=== PATIENT | female | born 1945 | race Caucasian/White ===

== ENCOUNTER → 2019-02-05 | Outpatient (CLI) | payer MEDICARE ==
[2019-02-05 16:23] LABS: Alanine Aminotransfer (ALT/SGP 29 U/L (12-78); Albumin, Blood 3.7 g/dL (3.4-5.0); Albumin/Globulin Ratio 0.9 (0.8-1.8); Alk Phos 82 U/L (50-136); Anion Gap 9 mmol/L (6-16); Aspartate Aminotrans (AST/SGOT 24 U/L (12-37); Bilirubin, Total 0.4 mg/dL (0.1-1.0); Blood Urea Nitrogen 11 mg/dL (8-24); Bun/Creatinine Ratio 16.5 (12.0-20.0); CO2, Blood 25 mmol/L (21-32); Calcium, Blood 8.8 mg/dL (8.5-10.1); Chloride, Blood 107 mmol/L (98-108); Creatinine, Blood 0.67 mg/dL (0.40-1.00); Free Thyroxine 1.32 ng/dL (0.70-1.60); Globulin, Blood 3.9 g/dL (2.2-4.0); Glomerular Filtration Rate >60 (60-); Glucose, Blood 133 mg/dL (70-99); Potassium, Blood 3.9 mmol/L (3.5-5.5); Sodium, Blood 141 mmol/L (136-145); Total Protein, Blood 7.6 g/dL (6.4-8.2)
[2019-02-05 16:27] LABS: Thyroid Stimulating Hormone 0.473 uIU/mL (0.360-4.800)
== END | disposition home or self-care (01) ==
LOC: LAB SHORT 14:15 → LAB 14:15
PROVIDERS: Family Medicine
DX: E03.9 Hypothyroidism, unspecified (principal); R06.02 Shortness of breath; R60.9 Edema, unspecified
CPT/HCPCS: 80053; 84439; 84443

== ENCOUNTER → 2019-02-21 | Outpatient (CLI) | payer MEDICARE | END | disposition home or self-care (01) | LOC: LAB SHORT 13:07 → LAB 13:07 | DX: N39.0 Urinary tract infection, site not specified (principal) | CPT/HCPCS: 87077; 87086; 87186 ==

== ENCOUNTER → 2021-12-23 | Outpatient (CLI) | payer OTHER | END | disposition home or self-care (01) | LOC: LAB 15:30 → LAB SHORT 15:30 | DX: R30.9 Painful micturition, unspecified (principal) | CPT/HCPCS: 87086 ==

== ENCOUNTER → 2022-08-06 | Outpatient (CLI) | payer OTHER | LOC: LAB SHORT 18:37 → LAB 18:37 | DX: N39.0 Urinary tract infection, site not specified (principal) | CPT/HCPCS: 87077; 87086; 87186 ==

== ENCOUNTER 2023-02-11 21:50 | Inpatient (IN) | payer OTHER ==
[~2023-02-11] VITALS: Ht 152.4 cm; Wt 83.1 kg
[2023-02-11 22:46] LABS: BASOPHILS ABSOLUTE AUTO 0.02 K/mm3 (0.00-0.23); BASOPHILS PERCENT AUTO 0 % (0-2); EOSINOPHILS ABSOLUTE AUTO 0.18 K/mm3 (0.00-0.68); EOSINOPHILS PERCENT AUTO 2 % (0-6); Hematocrit 36.6 % (33.0-51.0); Hemoglobin 11.7 g/dL (11.5-16.0); IMMATURE GRAN ABSOLUTE AUTO 0.06 K/mm3 (0.00-0.10); IMMATURE GRAN PERCENT AUTO 1 % (0-1); LYMPHOCYTES ABSOLUTE AUTO 2.75 K/mm3 (0.84-5.20); LYMPHOCYTES PERCENT AUTO 32 % (21-46); MONOCYTES ABSOLUTE AUTO 0.63 K/mm3 (0.16-1.47); MONOCYTES PERCENT AUTO 7 % (4-13); Mean Corpuscular HGB 27.3 pg (26.0-34.0); Mean Corpuscular Volume 85 fL (80-100); Mean Platelet Volume 10.5 fL (9.1-12.4); NEUTROPHILS PERCENT AUTO 58 % (41-73); Platelet Count 289 K/mm3 (150-400); RDW Coefficient Variation 13.4 % (11.7-14.2); RDW Standard Deviation 41.4 fL (35.1-46.3); Red Blood Cell Count 4.29 M/mm3 (3.80-5.20); White Blood Cell Count 8.64 K/mm3 (4.00-11.30)
[2023-02-11 23:10] LABS: Albumin, Blood 3.2 g/dL (3.4-5.0); Albumin/Globulin Ratio 0.8 (0.8-1.8); Bilirubin, Total 0.3 mg/dL (0.1-1.0); Bun/Creatinine Ratio 12.5 (12.0-20.0); Calcium, Blood 8.7 mg/dL (8.5-10.1); Creatinine, Blood 0.8 mg/dL (0.40-1.00); Globulin, Blood 3.8 g/dL (2.2-4.0); Potassium, Blood 4.6 mmol/L (3.5-5.5)
[2023-02-12 00:06] LABS: Influenza A, PCR NEGATIVE (NEGATIVE); Influenza B, PCR NEGATIVE (NEGATIVE); Resp Syncytial Virus, PCR NEGATIVE (NEGATIVE); SARS-Cov-2 (COVID-19) PCR, MMC NEGATIVE (NEGATIVE)
[2023-02-12] MEDS ORDERED: EPINEPHRIN0.3 MG/0.1 IM (00:30)
[2023-02-12] MEDS ORDERED: LEVOTHYROXINE50 MC9 PO (00:30)
[2023-02-12] MEDS ORDERED: LOSARTAN POTASS25 M2 PO (00:30)
[2023-02-12] MEDS ORDERED: DONEPEZIL HCL10 M1 PO (00:31)
[2023-02-12] MEDS ORDERED: SYMBICORT 16010.2 GM IH (00:31)
[2023-02-12] MEDS ORDERED: PRED FORTE5 M1 BOTHEYES (00:31)
[2023-02-12] MEDS ORDERED: LORAZEPAM0.5 MG PO (00:31)
--- NOTE | 2023-02-12 04:00 | NUR ---
ADMIT NOTE; PT ARRIVES FROM THE ED VIA GURNEY. UPON ADMIT THE PT IS TRANSFERED FROM THE GURNEY TO THE HOSPITAL BED VIA SLIDER SHEET. THE PT IS AXO X4 W. [id number]. THE PT IS [place]. THE PT HAS 2L NC ON. THE PT DENIES ANY SOB, CHEST PAIN/PRESSURE OR PAIN UPON ADMIT. THE PT DENIES ANY ACUTE NEEDS AT THIS TIME.
[2023-02-12 04:06] VITALS: BP 102/59
--- NOTE | 2023-02-12 05:52 | NUR ---
SHIFT SUMMARY; NO ACUTE CHANGES OVERNIGHT. THE PT IS AXO X3-4 AND A 1 ASSIST W/FWW. THE PT HAS BEEN RESTING IN BED SINCE ADMIT. THE PT HAS 2L NC W/ O2 SATS >92%. THE PT DENIES ANY SOB, CHEST PAIN/PRESSURE, PAIN OR N/V. CURRRENTLY THE PT IS RESTING IN BED WITH THE BED IN THE LOWEST POSITION AND THE CALL LIGHT AT BEDSIDE.
[2023-02-12 07:15] VITALS: BP 92/71
[2023-02-12 10:10] VITALS: BP 116/60
--- NOTE | 2023-02-12 14:21 | NUR ---
PT HACKING CONSTANT COUGH. RT NOTIFIED FOR TREATMENT. AWARE.
[2023-02-12 15:36] VITALS: BP 94/62
--- NOTE | 2023-02-12 16:48 | NUR ---
SHIFT SUMMARY- PT IS ALERT AND ORIENTED TO PERSON, PLACE, SITUATION. DIFFICULTY WITH SHORT TERM MEMORY. 2LNC. AMBULATED TO THE BATHROOM USING FWW AND STAND BY ASSISTANCE. FAMILY AT BEDSIDE. HACKING COUGH. NOTIFIED SEE EMAR. PT REPORTED ALLERGY TO CODEINE. CHART UPDATED. NO ACUTE CHANGES THIS SHIFT. PT DAUGHTER WOULD LIKE AN UPDATE
[2023-02-12 19:38] VITALS: BP 137/55
[2023-02-13 05:08] VITALS: BP 112/76
--- NOTE | 2023-02-13 06:21 | NUR ---
SUMMARY: NO ACUTE EVENTS OVERNIGHT. PATIENT ON 2L NC. AMBULATES FROM BED TO CHAIR INDPENDENTLY. VSS. CALL LIGHT IN REACH.
[2023-02-13 07:24] VITALS: BP 101/73
--- NOTE | 2023-02-13 11:33 | NUR ---
Pt. is awake and sitting up in a recliner when she welcomes my visit. Pt. is pleasant. Facilitate a life review and listen with empathy and calming presence. Considered matters of skip and belief. Pt. displayed evidence of increased trust and enagement. Prayed with Pt. Pt. verbalized gratitude for the spiritual care visit.
[2023-02-13] MEDS ORDERED: IPRAT-ALBUT 0.5-3 ML INH (13:44)
[2023-02-13] MEDS ORDERED: Prednisone20 MG PO (13:46)
[2023-02-13] MEDS ORDERED: BENZ100A PO (14:12)
--- NOTE | 2023-02-13 14:29 | NUR ---
DISCHARGE DISCHARGED HOME FAMILY AT BEDSIDE. DISCUSSED DISCHARGE INSTRUCTIONS WITH PT AND FAMILY. EXPRESSED IMPORTANCE OF SMOKING CESSATION. ALERT AND ORIENTED X4. SOME DIFFICULTY WITH SHORT TERM MEMORY. INDEPENDENT IN THE ROOM. [facility] TO DELIVER EQUIPMENT.
[2023-02-14] MEDS ORDERED: Ventolin/Prove6.7 GM INH (18:24)
[2023-02-14] MEDS ORDERED: LORAZEPAM0.5 MG PO (18:25)
== END 2023-02-13 14:30 | disposition hospice, inpatient (51) | DRG 189 ==
LOC: ER 21:50 → MEDS 02-12 03:35 → ENPENDDIS 02-13 12:39 → MEDS 02-13 14:30
PROVIDERS: Emergency Medicine; ADMIT Internal Medicine
DX: J96.01 Acute respiratory failure with hypoxia (principal); J44.1 Chronic obstructive pulmonary disease with (acute) exacerbation; F17.210 Nicotine dependence, cigarettes, uncomplicated; H40.9 Unspecified glaucoma; I10 Essential (primary) hypertension; Z51.5 Encounter for palliative care; F03.90 Unspecified dementia, unspecified severity, without behavioral disturbance, psychotic disturbance, mood disturbance, and anxiety; E89.0 Postprocedural hypothyroidism; F41.9 Anxiety disorder, unspecified; F32.A Depression, unspecified; I35.0 Nonrheumatic aortic (valve) stenosis; Z20.822 Contact with and (suspected) exposure to COVID-19; Z98.890 Other specified postprocedural states; Z71.6 Tobacco abuse counseling; Z99.81 Dependence on supplemental oxygen; Z79.51 Long term (current) use of inhaled steroids; Z88.2 Allergy status to sulfonamides; Z90.710 Acquired absence of both cervix and uterus; Z88.8 Allergy status to other drugs, medicaments and biological substances; Z91.030 Bee allergy status; Z91.038 Other insect allergy status
CPT/HCPCS: 0241U; 71046; 71260; 80053; 83880; 84484; 85025; 85379; 93005; 93010; 93306; 94640; 94664; 94760; A9270; J1650; J1940; J2930; Q9967

== ENCOUNTER 2023-02-14 16:49 | Inpatient (IN) | payer OTHER ==
[~2023-02-14] VITALS: Ht 152.4 cm; Wt 82.8 kg
[~2023-02-14 16:49] MED LIST: BENZ100A PO; DONEPEZIL HCL10 M1 PO; EPINEPHRIN0.3 MG/0.1 IM; IPRAT-ALBUT 0.5-3 ML INH; LEVOTHYROXINE50 MC9 PO; LORAZEPAM0.5 MG PO; LOSARTAN POTASS25 M2 PO; PRED FORTE5 M1 BOTHEYES; Prednisone20 MG PO; SYMBICORT 16010.2 GM IH
[2023-02-14 18:06] LABS: BASOPHILS ABSOLUTE AUTO 0.01 K/mm3 (0.00-0.23); BASOPHILS PERCENT AUTO 0 % (0-2); EOSINOPHILS PERCENT AUTO 0 % (0-6); Hematocrit 33.1 % (33.0-51.0); Hemoglobin 10.5 g/dL (11.5-16.0); IMMATURE GRAN ABSOLUTE AUTO 0.08 K/mm3 (0.00-0.10); IMMATURE GRAN PERCENT AUTO 1 % (0-1); LYMPHOCYTES ABSOLUTE AUTO 1.37 K/mm3 (0.84-5.20); LYMPHOCYTES PERCENT AUTO 13 % (21-46); MONOCYTES ABSOLUTE AUTO 0.48 K/mm3 (0.16-1.47); MONOCYTES PERCENT AUTO 5 % (4-13); Mean Corpuscular HGB 27.3 pg (26.0-34.0); Mean Corpuscular HGB Conc 31.7 g/dL (31.5-36.5); Mean Corpuscular Volume 86 fL (80-100); Mean Platelet Volume 10.6 fL (9.1-12.4); NEUTROPHILS ABSOLUTE AUTO 8.71 K/mm3 (1.96-9.15); NEUTROPHILS PERCENT AUTO 82 % (41-73); Platelet Count 297 K/mm3 (150-400); RDW Coefficient Variation 13.9 % (11.7-14.2); RDW Standard Deviation 42.8 fL (35.1-46.3); Red Blood Cell Count 3.84 M/mm3 (3.80-5.20); White Blood Cell Count 10.65 K/mm3 (4.00-11.30)
[2023-02-14 18:23] LABS: Albumin, Blood 3.1 g/dL (3.4-5.0); Albumin/Globulin Ratio 0.8 (0.8-1.8); Bilirubin, Total 0.1 mg/dL (0.1-1.0); Bun/Creatinine Ratio 29.9 (12.0-20.0); Calcium, Blood 8.5 mg/dL (8.5-10.1); Creatinine, Blood 0.8 mg/dL (0.40-1.00); Globulin, Blood 3.7 g/dL (2.2-4.0); Potassium, Blood 4.7 mmol/L (3.5-5.5); Total Protein, Blood 6.8 g/dL (6.4-8.2)
[2023-02-14] MEDS ORDERED: Ventolin/Prove6.7 GM INH (18:24)
[2023-02-14] MEDS ORDERED: LORAZEPAM0.5 MG PO (18:25)
[2023-02-14 21:45] LABS: International Normalized Ratio 0.92; Prothrombin Time Results 9.7 Sec (9.7-11.5)
[2023-02-14 22:00] LABS: Anti-Xa UFH, PHA Monitoring <0.10 IU/mL
[2023-02-14 22:12] VITALS: BP 133/62
[2023-02-15] VITALS (7 sets, daily range): BP systolic 122–154; BP diastolic 58–98
[2023-02-15 04:24] LABS: Hematocrit 31.4 % (33.0-51.0); Mean Corpuscular HGB 27.2 pg (26.0-34.0); Mean Corpuscular HGB Conc 31.8 g/dL (31.5-36.5); Mean Corpuscular Volume 86 fL (80-100); Mean Platelet Volume 10.5 fL (9.1-12.4); Platelet Count 270 K/mm3 (150-400); RDW Coefficient Variation 14.1 % (11.7-14.2); RDW Standard Deviation 43.2 fL (35.1-46.3); Red Blood Cell Count 3.67 M/mm3 (3.80-5.20); White Blood Cell Count 11.31 K/mm3 (4.00-11.30)
[2023-02-15 04:45] LABS: Bun/Creatinine Ratio 28.8 (12.0-20.0); Calcium, Blood 8.1 mg/dL (8.5-10.1); Creatinine, Blood 0.73 mg/dL (0.40-1.00); Magnesium, Blood 1.9 mg/dL (1.6-2.4); Potassium, Blood 3.9 mmol/L (3.5-5.5)
--- NOTE | 2023-02-15 07:14 | NUR ---
SHIFT SUMMARY/ARRIVAL TO PCU PT ARRIVED TO PCU AT APPROXIMATELY 2210. PT SLID OVER FROM ER GURNEY TO HOSPITAL BED BY 3 CLINICAL STAFF MEMBERS. PT A&Ox4, CALLS AND COMMUNICATES NEEDS APPROPRIATELY, ORIENTED PT TO CALL LIGHT/UNIT. PT DENIED CP/PRESSURE THROUGHOUT SHIFT. BP STABLE, SINUS 60-70's. SpO2> 92% RA WHILE AWAKE, PT DESATURATED TO MID 80's WHILE ASLEEP, 2L VIA NC KEPT SpO2> 92% WHILE ASLEEP. PT INCONTINENT/CONTINENT OF URINE AND BOWEL, SBA TO BSC. PT STATED THAT WHEN SHE HAS HER COUGHING FITS, THATS WHEN SHE IS INCONTINENT. HEPARIN gtt INFUSING PER EMAR MANAGED BY PHARMACY. NO OTHER EVENTS, REPORT GIVEN TO DAY SHIFT RN.
--- NOTE | 2023-02-15 17:03 | NUR ---
SHIFT SUMMARY PT IS ALERT AND ORIENTED X 4 AND HAS ANSWERED QUESTIONS APPROPRIATELY BUT IS FORGETFUL AT TIMES. BP AND HR STABLE, SPO2 MAINTAINED >93% VIA RA-1L VIA NC. OCCASSIONAL HACKING COUGH NOTED W/ WHITE/BROWN SPUTUM AT TIMES. PT KNOWN TO BE A CURRENT EVERY DAY SMOKER. PT REPORTED FEELING SOB W/ EXERTION BUT SPO2 MAINTAINS. SHE HAS DENIED FEELINGS OF CHEST PAIN/PRESSURE DURING SHIFT. PAIN REPORTED IN BACK, HEAT THERAPY PROVIDED, ALSO SEE EMAR FOR PAIN MANAGEMENT. SHE HAS DENIED FEELINGS OF NAUSEA DURING SHIFT. DIURETIC PROVIDED DURING SHIFT PER EMAR ORDERS AND PT FREQUENTLY USED BEDSIDE COMMODE A 1 PERSON ASSIST TO MANAGE LINES//ASSIST W/ LANNY CARE AND ATTENDS CHANGES IF NEEDED. TWO DAUGHTERS AND A SON HAVE BEEN AT BEDSIDE ON AND OFF DURING SHIFT. PT REPORED HISTORY OF ANXIETY BUT DENIED FEELING ANXIETY DURING SHIFT. PT REPORTED THAT SHE WAS HAVING AN EPISODE OF ANXIETY PRIOR TO HOSPITALIZATION. WILL CONTINUE TO MONITOR AND REPORT TO ONCOMING RN.
[2023-02-16 03:39] VITALS: BP 126/64
[2023-02-16 03:40] LABS: BASOPHILS ABSOLUTE AUTO 0.02 K/mm3 (0.00-0.23); BASOPHILS PERCENT AUTO 0 % (0-2); EOSINOPHILS ABSOLUTE AUTO 0.16 K/mm3 (0.00-0.68); EOSINOPHILS PERCENT AUTO 1 % (0-6); Hematocrit 34.4 % (33.0-51.0); IMMATURE GRAN ABSOLUTE AUTO 0.07 K/mm3 (0.00-0.10); IMMATURE GRAN PERCENT AUTO 1 % (0-1); LYMPHOCYTES ABSOLUTE AUTO 3.91 K/mm3 (0.84-5.20); LYMPHOCYTES PERCENT AUTO 35 % (21-46); MONOCYTES ABSOLUTE AUTO 0.78 K/mm3 (0.16-1.47); MONOCYTES PERCENT AUTO 7 % (4-13); Mean Corpuscular HGB 27.3 pg (26.0-34.0); Mean Corpuscular Volume 85 fL (80-100); Mean Platelet Volume 10.4 fL (9.1-12.4); NEUTROPHILS PERCENT AUTO 56 % (41-73); Platelet Count 308 K/mm3 (150-400); RDW Coefficient Variation 13.9 % (11.7-14.2); RDW Standard Deviation 42.8 fL (35.1-46.3); Red Blood Cell Count 4.03 M/mm3 (3.80-5.20); White Blood Cell Count 11.14 K/mm3 (4.00-11.30)
[2023-02-16 04:10] LABS: Bun/Creatinine Ratio 31.7 (12.0-20.0); Calcium, Blood 8.5 mg/dL (8.5-10.1); Creatinine, Blood 1.01 mg/dL (0.40-1.00); Free Thyroxine 1.28 ng/dL (0.70-1.60); Magnesium, Blood 2.1 mg/dL (1.6-2.4); Potassium, Blood 3.8 mmol/L (3.5-5.5); Thyroid Stimulating Hormone 0.232 uIU/mL (0.360-4.800); Triiodothyronine, Free 2.02 pg/mL (2.18-3.98)
--- NOTE | 2023-02-16 04:35 | NUR ---
SHIFT SUMMARY PT IS A/Ox3-4 AND COOPERATIVE WITH CARE PROVIDED BY MEMBERS OF STAFF. ANSWERS QUESTIONS APPROPRIATELY AND ABLE TO MAKE HER NEEDS KNOWN. NO ACUTE EVENTS OVERNIGHT FOR PT WAS ABLE TO SLEEP T/O MOST OF THE SHIFT. CAN BE CONFUSED/FORGETFUL AT TIMES (HX OF DEMENTIA). CARDIAC ARAMBULA, REMAINED IN SR 70-90'S WITH NO REPORTS OF CP OR PRESSURE DURING THE NIGHT. BP HAS REMAINED STABLE WELL. MAINTAINS SPO2 >92% ON RA-1L. PT NOTED TO BECOME SOB WITH EXERTION WELL DESAT INTO THE UPPER 80'S WHEN ASLEEP. COUGH AND PAIN MANAGED WELL WITH MEDS GIVEN ORDERED VIA EMAR. ABLE TO ABULATE TO BSC TO VOID WITHOUT NEED OF STAFF ASSIST. NO NEW ORDERS AT THIS TIME, WILL REPORT TO ONCOMING RN. SAL WALLIS T/O THE SHIFT
[2023-02-16 07:27] VITALS: BP 111/87
--- NOTE | 2023-02-16 09:18 | NUR ---
ASSUMPTION OF CARE: RECIEVED REPORT FROM SPANISH LECTURER RN AT APPROX 0715. PT ALERT AND ORIENTED, ABLE TO ANSWER QUESTIONS AND MAKE NEEDS KNOWN. PT SBP 110'S WITH HR IN THE 90'S NO C/O CHEST PAIN, PRESSURE OR SOB. PT ABLE TO USE BEDSIDE COMMODE WITH MINIMAL ASSIST. PT UP IN THE CHAIR FOR BREAKFAST. PT DAUGHTER AT THE BEDSIDE AND UPDATED TO PLAN OF CARE. WILL CONTINUE TO MONITOR T/O THE SHIFT.
[2023-02-16 11:49] VITALS: BP 123/90
--- NOTE | 2023-02-16 16:16 | NUR ---
Upon receiving a referral for spiritual care, I visit the patient. Patient has her dtr Apolonia bedside and they immediately engage well in conversation. They share about the patient's 9 children and multiple grandchlidren. Patient talks about the pain of having dementia and is tearful at times about not being able to say what she means and remember things that she knows. We explore to the positive things that are ahead and the safety, peace and guardrails that are in place already for her. She shares about her strong Buddhism skip and her trust in God to hear and answer her prayers. I provide therapeutic listening, levity, emotional support and prayer. Patient and Apolonia respond well and show signs of increased peace and a renewed hope about the future. I will cotninue to remain available to patient and family.
[2023-02-16 16:29] VITALS: BP 123/53
--- NOTE | 2023-02-16 17:37 | NUR ---
SHIFT SUMMARY: NO ACUTE CHANGES T/O THE SHIFT. PT REMAINS MEDICAL STATUS WITH TELE PER DR. FREED. PT WORKED WITH PHYSICAL THERAPY TODAY WITH NO ISSUES, SBA WITH A WALKER. PT ABLE TO USE THE BEDSIDE COMMODE WITH NO C/O LIGHTHEADNESS, SOB OR CHEST PAIN/PRESSURE. SBP IN THE 120'S, HR REMAINS IN THE 80-90'S. PT ABLE TO TOLERATE BEING ON ROOM AIR T/O THE SHIFT AND MAINTAINING >90%. DAUGHTER AT THE BEDSIDE MOST OF THE AFTERNOON AND UPDATED TO PLAN OF CARE. WILL CONTINUE TO MONITOR AND GIVE REPORT TO NOC SHIFT RN.
[2023-02-16 19:29] VITALS: BP 131/61
[2023-02-17 03:40] VITALS: BP 155/95
--- NOTE | 2023-02-17 05:22 | NUR ---
SHIFT SUMMARY PT IS A/Ox3-4 AND COOPERATIVE WITH CARE PROVIDED BY MEMBERS OF STAFF. HX OF DEMENTIA AND CAN BE FORGETFUL/EASILY CONFUSED AT TIMES. ABLE TO ANSWER QUESTIONS AND ABLE TO MAKE HER NEEDS KNOWN. NO ACUTE EVENTS FOR PT WAS BALE TO SLEEP T/O MOST OF THE NIGHT. CARDIAC ARAMBULA, REMAINED IN SR-ST 70-100'S WITH NO REPORTS OF CP OR PRESSURE DURING THE SHIFT. SBP STABLE AT THIS TIME. RESPIRATORY ARAMBULA, MAINTAINS SPO2 >92% ON RA, INTERMITTENT EPISODES OF SOB, BUT PT STATES "I THINK ITS MY SEASONAL ALLERGIES". RESPONDED WELL TO PRN BREATHING TREATMENTS. ALSO HAS EPISODES OF PERSISTANT/PRODUCTIVE COUGH. ABLE TO ABULATE TO BSC OR BATHROOM WITH MINMAL ASSISTANCE. NO NEW ORDERS AT THIS TIME, WILL REPORT TO ONCOMING RN. SAL WALLIS T/O THE SHIFT
[2023-02-17 08:44] VITALS: BP 121/103
[2023-02-17] MEDS ORDERED: ACET325 PO (16:22)
[2023-02-17] MEDS ORDERED: ASPI81CH PO (16:23)
[2023-02-17] MEDS ORDERED: ATOR40TA PO (16:26)
[2023-02-17] MEDS ORDERED: CLOP75 PO (16:27)
[2023-02-17] MEDS ORDERED: BENMENLOZ MM (16:32)
[2023-02-17] MEDS ORDERED: METO50ER PO (16:34)
[2023-02-17] MEDS ORDERED: SPIR25 PO (16:35)
[2023-02-17] MEDS ORDERED: PANT40 PO (16:35)
[2023-02-17] MEDS ORDERED: SOAANZ40 M1 PO (16:37)
--- NOTE | 2023-02-17 18:18 | NUR ---
NURSING PCU DISCHARGE SUMMARY: No significant changes since a.m. assessment. Seen by PMD, discharge home d/o received. Pt and daughter verbalized understanding of all written and verbal discharge instructions. PIV dc'd w/cath intact. Rx's faxed to [facility]. No s/s of acute distress at time of discharge. Escorted from unit via w/c accompanied by PCT.
== END 2023-02-17 17:17 | disposition home health service (06) | DRG 280 ==
LOC: ER 16:49 → PCU 21:04
PROVIDERS: Family Medicine; Internal Medicine Cardiovascular Disease; Nurse Practitioner Acute Care; Pharmacist; Student in an Organized Health Care Education/Training Program; ADMIT Internal Medicine
DX: I21.4 Non-ST elevation (NSTEMI) myocardial infarction (principal); I50.33 Acute on chronic diastolic (congestive) heart failure; J96.01 Acute respiratory failure with hypoxia; J44.1 Chronic obstructive pulmonary disease with (acute) exacerbation; I11.0 Hypertensive heart disease with heart failure; I35.0 Nonrheumatic aortic (valve) stenosis; E89.0 Postprocedural hypothyroidism; F03.90 Unspecified dementia, unspecified severity, without behavioral disturbance, psychotic disturbance, mood disturbance, and anxiety; Z98.890 Other specified postprocedural states; H40.9 Unspecified glaucoma; D64.9 Anemia, unspecified; E66.01 Morbid (severe) obesity due to excess calories; R00.1 Bradycardia, unspecified; D72.828 Other elevated white blood cell count; E05.80 Other thyrotoxicosis without thyrotoxic crisis or storm; Z90.710 Acquired absence of both cervix and uterus; F17.210 Nicotine dependence, cigarettes, uncomplicated; Z68.37 Body mass index [BMI] 37.0-37.9, adult; Z88.2 Allergy status to sulfonamides; Z88.5 Allergy status to narcotic agent; Z88.8 Allergy status to other drugs, medicaments and biological substances; Z71.6 Tobacco abuse counseling; Z91.030 Bee allergy status; Z91.038 Other insect allergy status; Z79.51 Long term (current) use of inhaled steroids; Z79.890 Hormone replacement therapy; Z79.899 Other long term (current) drug therapy
CPT/HCPCS: 36415; 71046; 80048; 80053; 83735; 83880; 84439; 84443; 84481; 84484; 85025; 85027; 85520; 85610; 85730; 93005; 93010; 94640; 94664; 94760; 97110-CQ; 97116-CQ; 97162; 97530; 99285-25; A9270; J1644; J1650; J7512

== ENCOUNTER 2023-03-17 11:14 | Inpatient (IN) | payer OTHER ==
[~2023-03-17] VITALS: Ht 152.4 cm; Wt 76.0 kg
[~2023-03-17 11:14] MED LIST changes: +ACET325 PO; +ASPI81CH PO; +ATOR40TA PO; +BENMENLOZ MM; +CLOP75 PO; +METO50ER PO; +PANT40 PO; +SOAANZ40 M1 PO; +SPIR25 PO; +Ventolin/Prove6.7 GM INH
[2023-03-17 13:07] LABS: Albumin, Blood 3.5 g/dL (3.4-5.0); Albumin/Globulin Ratio 0.8 (0.8-1.8); Bilirubin, Direct 0.1 mg/dL (0.0-0.3); Bilirubin, Indirect 0.7 mg/dL (0.1-0.7); Bilirubin, Total 0.8 mg/dL (0.1-1.0); Bun/Creatinine Ratio 17.5 (12.0-20.0); Calcium, Blood 8.9 mg/dL (8.5-10.1); Creatinine, Blood 1.37 mg/dL (0.40-1.00); Globulin, Blood 4.2 g/dL (2.2-4.0); Potassium, Blood 3.7 mmol/L (3.5-5.5); Total Protein, Blood 7.7 g/dL (6.4-8.2)
[2023-03-17 13:09] LABS: BASOPHILS ABSOLUTE AUTO 0.02 K/mm3 (0.00-0.23); BASOPHILS PERCENT AUTO 0 % (0-2); EOSINOPHILS PERCENT AUTO 1 % (0-6); Hematocrit 28.8 % (33.0-51.0); Hemoglobin 9.5 g/dL (11.5-16.0); IMMATURE GRAN ABSOLUTE AUTO 0.06 K/mm3 (0.00-0.10); IMMATURE GRAN PERCENT AUTO 1 % (0-1); LYMPHOCYTES ABSOLUTE AUTO 2.52 K/mm3 (0.84-5.20); LYMPHOCYTES PERCENT AUTO 28 % (21-46); MONOCYTES ABSOLUTE AUTO 0.71 K/mm3 (0.16-1.47); MONOCYTES PERCENT AUTO 8 % (4-13); Mean Corpuscular HGB 28.1 pg (26.0-34.0); Mean Corpuscular Volume 85 fL (80-100); Mean Platelet Volume 10.1 fL (9.1-12.4); NEUTROPHILS ABSOLUTE AUTO 5.75 K/mm3 (1.96-9.15); NEUTROPHILS PERCENT AUTO 63 % (41-73); Platelet Count 388 K/mm3 (150-400); RDW Coefficient Variation 14.4 % (11.7-14.2); RDW Standard Deviation 44.2 fL (35.1-46.3); Red Blood Cell Count 3.38 M/mm3 (3.80-5.20); White Blood Cell Count 9.16 K/mm3 (4.00-11.30)
[2023-03-17 19:04] VITALS: BP 122/40
[2023-03-17 21:09] LABS: Hematocrit 26.9 % (33.0-51.0); Hemoglobin 8.7 g/dL (11.5-16.0)
[2023-03-18] VITALS (15 sets, daily range): BP systolic 84–133; BP diastolic 47–83
[2023-03-18 04:05] LABS: Hemoglobin 8.1 g/dL (11.5-16.0); Mean Corpuscular HGB 27.5 pg (26.0-34.0); Mean Corpuscular HGB Conc 32.4 g/dL (31.5-36.5); Mean Corpuscular Volume 85 fL (80-100); Mean Platelet Volume 9.9 fL (9.1-12.4); Platelet Count 297 K/mm3 (150-400); RDW Coefficient Variation 14.4 % (11.7-14.2); RDW Standard Deviation 43.8 fL (35.1-46.3); Red Blood Cell Count 2.95 M/mm3 (3.80-5.20); White Blood Cell Count 6.18 K/mm3 (4.00-11.30)
[2023-03-18 04:59] LABS: Bun/Creatinine Ratio 17.6 (12.0-20.0); Calcium, Blood 8.4 mg/dL (8.5-10.1); Creatinine, Blood 1.36 mg/dL (0.40-1.00); Potassium, Blood 3.7 mmol/L (3.5-5.5)
--- NOTE | 2023-03-18 05:27 | NUR ---
Shift Summary RT came to see pt and measured 83% O2 sat, I obtained an order from hospitalist to titrate to 92% O2 via NC. Pt has poor perfusion in her hands which may have contributed to low reading. Using ear lobe monitor pt O2 sat 94-100% on 1.5L O2 at rest. Pt up to the bathroom with 1 assist, bed alarm on. Slept well t/o the night. No c/o of pain or nausea. R flank tenderness.
--- NOTE | 2023-03-18 08:00 | NUR ---
pt laying in bed awake a/ox3, pleasant and cooperative with care, follows commands well, denies pain other than her chronic discomforts, lungs are clear in upper govea, dim in bases, resp even and unlabored, no cough noted, hrr, murmur noted, no edema noted, ppp+1, cap refill <3 sec, vs stable, afebrile, iv site to rac site is clear and patent, btx4, abd round soft nontender, voids wihtout diff, skin c/w/d, maew, one person assist to bathroom, dank, call light in reach.
[2023-03-18 09:12] LABS: Hematocrit 26.5 % (33.0-51.0); Hemoglobin 8.6 g/dL (11.5-16.0)
--- NOTE | 2023-03-18 17:57 | NUR ---
03/18/23 [address] JORDAN
--- NOTE | 2023-03-18 18:04 | NUR ---
pt will be going down for an egd soon, she has been npo, family updated, no acute changes this shift. call light in reach.
[2023-03-19 02:50] VITALS: BP 118/40
--- NOTE | 2023-03-19 05:02 | NUR ---
SHIFT SUMMARY NOC PT A/O X 3. PLEASANT AND COOPERATIVE WITH CARE. PT HAD EPISODES OF COUGHING FITS AND GIVEN RT BREATHING TREATMENTS AND TESSALON PEARLS. PT ALSO REPORTED THAT THEY TAKE CLARITIN DAILY THAT HELPS RELIEVE COUGH AND ORDER WAS OBTAINED AND FIRS DOSE WAS GIVEN @ 0300. PT IS ON CLEAR LIQUID DIET AND WILL START BOWL PREP 03/19/23 IN PREPARATION FOR COLONOSCOPY THAT WILL BE PERFORMED ON 03/20/23. EGD CAME BACK NEGATIVE FOR BLEEDING, BUT A SMALL HIATEL HERNIA WAS SEEN. PT IS ON 2L/NC MAINAINING SPO2 >94%. PT IS CURRENTLY RESTING WITH BED ALARM ON, BED IN LOWEST POSITION, AND CALL LIGHT WITHIN REACH.
[2023-03-19 07:08] LABS: Hematocrit 24.5 % (33.0-51.0); Hemoglobin 7.9 g/dL (11.5-16.0); Mean Corpuscular HGB 27.5 pg (26.0-34.0); Mean Corpuscular HGB Conc 32.2 g/dL (31.5-36.5); Mean Corpuscular Volume 85 fL (80-100); Mean Platelet Volume 9.6 fL (9.1-12.4); Platelet Count 296 K/mm3 (150-400); RDW Coefficient Variation 14.3 % (11.7-14.2); RDW Standard Deviation 44.2 fL (35.1-46.3); Red Blood Cell Count 2.87 M/mm3 (3.80-5.20); White Blood Cell Count 5.95 K/mm3 (4.00-11.30)
[2023-03-19 07:29] LABS: Anion Gap 7 mmol/L (6-16); Blood Urea Nitrogen 15 mg/dL (8-24); Bun/Creatinine Ratio 13.9 (12.0-20.0); CO2, Blood 28 mmol/L (21-32); Calcium, Blood 8.6 mg/dL (8.5-10.1); Chloride, Blood 103 mmol/L (98-108); Creatinine, Blood 1.08 mg/dL (0.40-1.00); Glomerular Filtration Rate 53 (60-); Glucose, Blood 131 mg/dL (70-99); Phosphorus, Blood 2.7 mg/dL (2.5-4.9); Potassium, Blood 3.5 mmol/L (3.5-5.5); Sodium, Blood 138 mmol/L (136-145)
[2023-03-19 07:31] VITALS: BP 90/54
[2023-03-19 11:45] VITALS: BP 129/45
[2023-03-19 15:25] VITALS: BP 111/43
--- NOTE | 2023-03-19 17:20 | NUR ---
SHIFT SUMMARY: Pt remains A&O with times of forgetfulness this shift. Family states pt has had episodes of coughing, then becomes unresponsive with eyes open until HOB is elevated. Then within "about 5 seconds" becomes responsive. Instructed to immediately call for RN when this happens. Nonproductive cough improved with Tessalon Pearls. Hot tea and honey at bedside. Lung sounds remain diminished/clear. Continuous pulse ox in place. Remains on CLD in prep for colonoscopy tomorrow. Ambulating to bathroom with ast from walker and SBA. Multiple loose stools today. Appears more in dark brown color this pm. All questions answered from family today with myself and Dr. Cardozo. Family verbalizes understanding of plan.
[2023-03-19 19:49] VITALS: BP 116/48
[2023-03-20] VITALS (7 sets, daily range): BP systolic 96–129; BP diastolic 33–74
--- NOTE | 2023-03-20 04:28 | NUR ---
SHIFT SUMMARY NOC PT A/O X 3. FORGETFUL AT TIMES. PT STARED NEEL AT 2123 03/19/23 IN PREPARATION FOR COLONOSCOPY ON 03/20/23. PT HAS NOT TOLERATED IT WELL AND HAS ONLY DRANK 1200ML/2000ML, BUT PT HAS BEEN ON CLEAR LIQUID DIET/NPO FOR PAST FEW DAYS AND STOOL IS CLEAR YELLOW CURRENTLY. SECOND 200ML OF BOWEL PREP SLATED TO START @ 0700. PT GRANDSON STAYED WITH PT DURING NIGHT AND HELPS WITH KEEPING PT CALM DURING COUGHING EPISODES. PT WAS GIVEN BREATHING TREATMENT AND PRN ROBITUSSIN. PT HAS BEEN USING BSC DUE TO FREQUENCY/URGENCY IN [place]. PT HAS ANXIETY ABOUT UPCOMING PROCEDURE. PT ON O2 3L/NC DUE TO DESATURATING INTO MID 80'S DURING COUGHING EPISODES AND IS MAINTAINING SPO2 > 92%. PT IS CURRENTLY RESTING WITH BED IN LOWEST POSITION, AND CALL LIGHT WITHIN REACH.
[2023-03-20 05:51] LABS: BASOPHILS ABSOLUTE AUTO 0.01 K/mm3 (0.00-0.23); BASOPHILS PERCENT AUTO 0 % (0-2); EOSINOPHILS ABSOLUTE AUTO 0.14 K/mm3 (0.00-0.68); EOSINOPHILS PERCENT AUTO 3 % (0-6); Hemoglobin 7.8 g/dL (11.5-16.0); IMMATURE GRAN PERCENT AUTO 2 % (0-1); LYMPHOCYTES ABSOLUTE AUTO 1.37 K/mm3 (0.84-5.20); LYMPHOCYTES PERCENT AUTO 25 % (21-46); MONOCYTES ABSOLUTE AUTO 0.55 K/mm3 (0.16-1.47); MONOCYTES PERCENT AUTO 10 % (4-13); Mean Corpuscular HGB 28.1 pg (26.0-34.0); Mean Corpuscular HGB Conc 32.5 g/dL (31.5-36.5); Mean Corpuscular Volume 86 fL (80-100); Mean Platelet Volume 9.8 fL (9.1-12.4); NEUTROPHILS ABSOLUTE AUTO 3.42 K/mm3 (1.96-9.15); NEUTROPHILS PERCENT AUTO 61 % (41-73); Platelet Count 289 K/mm3 (150-400); RDW Coefficient Variation 14.5 % (11.7-14.2); RDW Standard Deviation 45.1 fL (35.1-46.3); Red Blood Cell Count 2.78 M/mm3 (3.80-5.20); White Blood Cell Count 5.59 K/mm3 (4.00-11.30)
--- NOTE | 2023-03-20 07:30 | NUR ---
ASSUMED CARE: TELESALES ADVISOR ASSISTING PT TO BATHROOM. STOOL IS YELLOW WITH MINIMAL SEDIMENT. PT REQUIRES FREQUENT REMINDING TO DRINK PREP. CALL LIGHT IN REACH. SON AND DAUGHTER LEFT ROOM TO CHAT AFTER ALTERCATION WITH PREVIOUS NURSE. TELESALES ADVISOR WAS AT BEDSIDE FOR DE-ESCALATION. SON APOLOGIZED AND STATED HE WAS LEAVING
--- NOTE | 2023-03-20 11:13 | NUR ---
PT'S DAUGHTER CONCERNED ABOUT HOW DARK URINE IS AND STATES PT HAS HISTORY OF UTI'S. IS CONCERNED THAT BLEEDING COULD BE COMING FROM BLADDER. DISCUSSED WITH DR HSU WHO ORDERED UA BUT REASSURED THE FAMILY THAT THE FACT THAT IT IS NOT SHERMAN RED BLOOD MAKES IT UNLIKELY THAT BLADDER IS THE CAUSE OF BLOOD LOSS ANEMIA. FAMILY AGREEABLE
[2023-03-20 11:17] LABS: Anion Gap 4 mmol/L (6-16); Blood Urea Nitrogen 9 mg/dL (8-24); Bun/Creatinine Ratio 8.9 (12.0-20.0); CO2, Blood 32 mmol/L (21-32); Calcium, Blood 8.8 mg/dL (8.5-10.1); Chloride, Blood 104 mmol/L (98-108); Creatinine, Blood 1.01 mg/dL (0.40-1.00); Glomerular Filtration Rate 57 (60-); Glucose, Blood 118 mg/dL (70-99); Phosphorus, Blood 2.5 mg/dL (2.5-4.9); Potassium, Blood 3.4 mmol/L (3.5-5.5); Sodium, Blood 140 mmol/L (136-145)
--- NOTE | 2023-03-20 13:56 | NUR ---
PT RESTING PEACEFULLY AT THIS TIME. FAMILY REQUESTS TO WAIT TO GIVE HER ORDERED POTASSIUM AND TESSALON. DAY SURGERY STATES PT WILL BE COLLECTED AT 3PM. FAMILY AWARE OF THIS.
--- NOTE | 2023-03-20 15:04 | NUR ---
UPDATE PT DOWN FOR SCOPE AT 1500 TODAY. PT AMBULATED W/ ASSISTANCE AND FWW TO CART. ON 2L NC. SOB W/ AMBULATION. PT AND PT'S 2 DAUGHTERS PRAYED BEFORE PT LEFT ROOM. DAUGHTERS ESCORTED APPLICATION ASSISTANT AND PT TO SCOPE.
--- NOTE | 2023-03-20 16:09 | NUR ---
03/20/[address] VALDEZ, SEE ANESTHESIA RECORDS.
[2023-03-20 18:18] LABS: Source, Urine Clean Catch
[2023-03-20 18:27] LABS: Appearance, Urine Hazy (Clear); Bilirubin, Urine Neg (Neg); Blood, Urine 1+ (Neg); Color, Urine Yellow (P-Yellow); Glucose Qualitative, Urine Neg (Neg); Ketones, Urine 2+ (Neg); Leukocyte Esterase, Urine 2+ (Neg); Nitrite, Urine Neg (Neg); Protein, Urine 2+ (Neg); Specific Gravity, Urine 1.025 (1.003-1.022); Urobilinogen, Urine NORM (Normal)
[2023-03-20 18:50] LABS: Bacteria Many /hpf; Red Blood Cells, Urine 0-2 /hpf (0-2); Squamous Epithelial Cells Few /hpf (Few)
--- NOTE | 2023-03-20 19:04 | NUR ---
SHIFT SUMMARY: PT RETURNED FROM DAY SURGERY AT 1720. PT VERY SLEEPY BUT EASILY ROUSEABLE, VSS. FAMILY STATED THAT ANESTHESIA COMMENTED THAT PT'S LUNG SOUNDS WERE DIMINISHED AND WITH COMORBIDITIES ANESTHESIA WAS HESITANT TO DO PROCEDURE. WITH THAT FAMILY WANTED PT RE-EVALUATED. SPOKE WITH DR HSU REGARDING THIS, WHO CAME TO THE ROOM AN LISTENED TO PT AND SPOKE TO FAMILY. ORDERS FOR BNP IN AM AND DAILY WEIGHT COMPLETED WITH 4 POUND DECREASE FROM ADMIT. FAMILY LEFT FOR THE EVENING AND PT IS RESTING QUIETLY.
--- NOTE | 2023-03-21 04:22 | NUR ---
SHIFT SUMMARY; PT ENDORSED 7/10 CHEST PAIN AT THE BEGINNING OF THE SHIFT, EKG DONE, TROPONINS DONE THEY WERE ALL WNL. THE PT DID RECIEVE NITRO WHICH ENTIRELY RELEIVED THE PTS CHEST PAIN. THE PT HAS SINCE NOT ENDORSED ANY CHEST PAIN. THE PT IS AXO X3, CONFUSED AT TIMES. THE PT WAS VERY ANXIOUS THIS AM. THE PT IS A 1 ASSIST TO THE BATHROOM. THE PT HAS 2L NC ON WHICH IS HER BASELINE, O2 SATS HAVE BEEN >92% T/O THE NIGHT. THE PTS DAUGHTER IS AT BEDSIDE. THE PT DENIES ANY CHEST PAIN/PRESSURE, PAIN, SOB OR N/V PRESENTLY. CURRENTLY THE PT IS SLEEPING IN BED WITH THE BED IN THE LOWEST POSITION AND THE CALL LIGHT AT BEDSIDE.
[2023-03-21 05:21] LABS: Hematocrit 23.8 % (33.0-51.0); Hemoglobin 7.5 g/dL (11.5-16.0); Mean Corpuscular HGB Conc 31.5 g/dL (31.5-36.5); Mean Corpuscular Volume 89 fL (80-100); Mean Platelet Volume 9.8 fL (9.1-12.4); NRBC ABSOLUTE 0.02 K/mm3 (0.00-0.02); NRBC Auto 0.4 /100 WBC (0.0-0.2); Platelet Count 257 K/mm3 (150-400); RDW Coefficient Variation 14.9 % (11.7-14.2); RDW Standard Deviation 47.3 fL (35.1-46.3); Red Blood Cell Count 2.68 M/mm3 (3.80-5.20); White Blood Cell Count 5.47 K/mm3 (4.00-11.30)
[2023-03-21 05:23] VITALS: BP 108/76
[2023-03-21 05:54] LABS: Albumin, Blood 2.6 g/dL (3.4-5.0); Anion Gap 3 mmol/L (6-16); Blood Urea Nitrogen 7 mg/dL (8-24); Bun/Creatinine Ratio 7.4 (12.0-20.0); CO2, Blood 31 mmol/L (21-32); Calcium, Blood 8.3 mg/dL (8.5-10.1); Chloride, Blood 108 mmol/L (98-108); Creatinine, Blood 0.95 mg/dL (0.40-1.00); Glomerular Filtration Rate 62 (60-); Glucose, Blood 126 mg/dL (70-99); Phosphorus, Blood 2.2 mg/dL (2.5-4.9); Potassium, Blood 3.6 mmol/L (3.5-5.5); Sodium, Blood 142 mmol/L (136-145)
--- NOTE | 2023-03-21 06:10 | NUR ---
While in the room with the patient taking vitals, she began coughing and coughed so much so hard, that her eyes appeared to roll back, face went cagle, took us calling her name out several times and physical touch to pull her out of it. when asked if she knew what just happened she stated no, and i didnt even hear you two talking to me. Reported to KAYDEN Pak
[2023-03-21 07:18] VITALS: BP 109/34
[2023-03-21 08:03] VITALS: BP 119/53
[2023-03-21] MEDS ORDERED: Acerola C500 MG PO (12:13)
[2023-03-21] MEDS ORDERED: BENMENLOZ (12:18)
[2023-03-21] MEDS ORDERED: DOCU100 PO (12:18)
[2023-03-21] MEDS ORDERED: MIRALAX17 GM PO (12:19)
[2023-03-21] MEDS ORDERED: LORA10ER PO (12:19)
[2023-03-21] MEDS ORDERED: FERSU300 PO (12:19)
[2023-03-21] MEDS ORDERED: PHOSPHO-TRIN K500 MG PO (12:20)
[2023-03-21] MEDS ORDERED: SENNA LAXATIVE8.6 MG PO (12:20)
--- NOTE | 2023-03-21 13:25 | NUR ---
DISCHARGE SUMMARY PATIENT IS ALERT AND ORIENTED. PATIENT HAS HAD NO ACUTE EVENTS THIS SHIFT. PATIENT IS BEING DISCHARGED HOME WITH DAUGHTER TRANSPORTING. PATIENT HAD HOME 02 EVAL DONE, AND SHOWS NO OXYGEN NEED REQUIRED. THIS RN READ DISCHARGE INSTRUCTIONS AND PATIENT AND FAMILY UNDERSTOOD. LAURA STARKS WHEELED PATIENT TO FAMILIES CAR.
== END 2023-03-21 12:48 | disposition home health service (06) | DRG 812 ==
LOC: ER 11:14 → MEDS 11:15
PROVIDERS: Physician Assistant; Student in an Organized Health Care Education/Training Program; ADMIT Internal Medicine
PROC: 0DJ08ZZ Inspection of Upper Intestinal Tract, Via Natural or Artificial Opening Endoscopic (ICD-10-PCS; principal; 2023-03-18 18:00)
PROC: 0DBN8ZX Excision of Sigmoid Colon, Via Natural or Artificial Opening Endoscopic, Diagnostic (ICD-10-PCS; 2023-03-20)
PROC: 0DBM8ZX Excision of Descending Colon, Via Natural or Artificial Opening Endoscopic, Diagnostic (ICD-10-PCS; 2023-03-20)
PROC: 0DBK8ZX Excision of Ascending Colon, Via Natural or Artificial Opening Endoscopic, Diagnostic (ICD-10-PCS; 2023-03-20 15:00)
DX: D62 Acute posthemorrhagic anemia (principal); N17.9 Acute kidney failure, unspecified; E87.1 Hypo-osmolality and hyponatremia; I50.32 Chronic diastolic (congestive) heart failure; K92.2 Gastrointestinal hemorrhage, unspecified; D50.9 Iron deficiency anemia, unspecified; J44.9 Chronic obstructive pulmonary disease, unspecified; E03.9 Hypothyroidism, unspecified; E86.0 Dehydration; I11.0 Hypertensive heart disease with heart failure; I35.0 Nonrheumatic aortic (valve) stenosis; R05.3 Chronic cough; K63.5 Polyp of colon; E87.6 Hypokalemia; F03.90 Unspecified dementia, unspecified severity, without behavioral disturbance, psychotic disturbance, mood disturbance, and anxiety; K44.9 Diaphragmatic hernia without obstruction or gangrene; E83.39 Other disorders of phosphorus metabolism; I25.10 Atherosclerotic heart disease of native coronary artery without angina pectoris; H40.9 Unspecified glaucoma; I25.2 Old myocardial infarction; Z79.890 Hormone replacement therapy; Z88.5 Allergy status to narcotic agent; Z88.2 Allergy status to sulfonamides; Z91.038 Other insect allergy status; Z90.710 Acquired absence of both cervix and uterus; Z98.890 Other specified postprocedural states; Z87.891 Personal history of nicotine dependence; Z90.89 Acquired absence of other organs; Z79.02 Long term (current) use of antithrombotics/antiplatelets; Z99.81 Dependence on supplemental oxygen; Z79.82 Long term (current) use of aspirin; Z79.899 Other long term (current) drug therapy
CPT/HCPCS: 36415; 71046; 80048; 80069; 80076; 81001; 82607; 82728; 82746; 83540; 83550; 83880; 84145; 84484; 85014; 85018; 85025; 85027; 93005; 93010; 94640; 94664; 94760; 94761; 94762; 96365; 96374; 96375; 96376; 99285-25; A9270; C9113; G0378; J2001; J2704; J2916; J7030